=== PATIENT | male | born 1955 ===

== ENCOUNTER 2024-12-08 05:22 | Day surgery (SDC) | payer OTHER ==
[2024-12-05 13:23] VITALS: BP 159/89
[~2024-12-08] VITALS: Ht 167.6 cm; Wt 70.8 kg
[~2024-12-08 05:22] MED LIST: ATACAND16 MG PO; DONEPEZIL HCL5 MG PO; ROSUVASTATIN CA10 MG PO
[2024-12-08] MEDS ORDERED: CEFTRIAXONE SODIUM 2,000 MG VIAL IV ONE (08:15)
[2024-12-08] MEDS ORDERED: METRONIDAZOLE/SODIUM CHLORIDE 500 MG/100 ML PIGGYBACK IV ONE (08:15)
[2024-12-08] MEDS ORDERED: LIDOCAINE HCL 1%/EPINEPHRINE 20ML VIAL IJ ONE (08:15)
[2024-12-08] MEDS ORDERED: BUPIVACAINE HCL 30 ML VIAL IJ ONE (08:15)
[2024-12-08] MEDS ORDERED: POVIDONE-IODINE 118 ML BOTT TOP ONE (08:15)
[2024-12-08] MEDS ORDERED: HEMOSTATIC MATRIX 1 KIT KIT TOP ONE (08:15)
[2024-12-08] MEDS ORDERED: TAMSULOSIN HCL 0.4 MG CAP PO ONE (08:45)
[2024-12-08] MEDS ORDERED: OXYCODONE HCL5 MG PO (08:49)
== END 2024-12-08 13:00 | disposition home or self-care (01) ==
LOC: CIR.AMB 05:22
PROVIDERS: ATTEND Surgery
DX: K64.2 Third degree hemorrhoids (principal); K64.4 Residual hemorrhoidal skin tags; K62.5 Hemorrhage of anus and rectum